=== PATIENT | female | born 2005 | race Caucasian/White ===

== ENCOUNTER 2023-09-29 11:35 | Emergency (ER) | payer OTHER ==
[2023-09-29] MEDS ORDERED: Iopamidol 300 61% 100 ML VIAL FS ONE (12:02)
[2023-09-29 12:13] LABS: Bilirubin Neg (Negative); Blood, Urine Negative (Negative); Clarity Clear (Clear); Glucose, Urine (Dipstick) Normal (Negative); Ketone, Urine 5 mg/dL (Negative); Leukocyte Negative (Negative); Nitrite Negative (Negative); Protein, Urine (Dipstick) 15 mg/dl (Neg-Trace)
[2023-09-29 12:16] LABS: Pregnancy Test - Urine (BHCG) Negative (Negative); Pregu Control Background? CLEAR/WHITE (CLR/WHITE); Pregu Control Bar Appear? YES (CONTROL BAR)
[2023-09-29 12:17] LABS: Bacteria/HPF None Seen HPF (None Seen); CAUTI Indications for Culture Pelvic or flank pain; RBC/HPF None Seen HPF (0-3); Squamous Epithelial 0-3 HPF (0-3); WBC/HPF None Seen HPF (0-3)
[2023-09-29 12:18] LABS: Urine Culture Reflex No No
[2023-09-29 12:18] LABS: #Eosinphils 0.1 10x3/uL (0.0-0.5); #Monocytes 0.3 10x3/uL (0.0-1.1); #Neutrophils 2.8 10x3/uL (1.5-8.4); %Basophils 0.6 % (0.0-2.0); %Eosinophils 1.1 % (0.0-6.0); %Lymphocytes 33.5 % (18.0-47.0); %Monocytes 5.6 % (0.0-10.0); Hematocrit 41.7 % (34.9-44.5); Hemoglobin 14.8 g/dL (12.0-15.5); Mean Corpuscular HGB CONC 35.5 g/dL (32.0-36.0); Mean Corpuscular Volume 87.4 fl (81.6-98.3); Mean Platelet Volume 9.5 fl (7.4-10.4); Platelet Count 379 10x3/uL (150-450); RBC Distribution Width 11.7 % (11.5-14.5); Red Blood Cell (RBC) Count 4.77 10x6/uL (3.90-5.03); White Blood Cell (WBC) Count 4.7 10x3/uL (3.5-10.5)
[2023-09-29 12:41] LABS: ALT (SGPT) 16 U/L (8-55); AST (SGOT) 19 U/L (5-30); Albumin 4.6 g/dL (3.5-5.0); Alkaline Phosphatase 70 U/L (40-100); Anion Gap 16 mmol/L (10-20); BUN (Urea Nitrogen) 6 mg/dL (8.4-21.0); Bilirubin, Total 0.4 mg/dL (0.2-1.2); Calc. Creatinine Clearance 0 mL/min (70-130); Calcium 9.7 mg/dL (7.8-10.44); Carbon Dioxide 22 mmol/L (22-29); Chloride 104 mmol/L (98-107); Estimated GFR 104; Globulin 3.5 g/dL (2.4-3.5); Glucose 102 mg/dL (70-105); Potassium 3.8 mmol/L (3.5-5.1); Protein, Total 8.1 g/dL (6.0-8.3); Sodium 138 mmol/L (136-145)
[2023-09-29] MEDS ORDERED: Ondansetron PF 4 MG/2 ML Vial ONE (12:48)
[2023-09-29] MEDS ORDERED: Morphine 4 MG/ML VIAL ONE (12:48)
[2023-09-29 13:08] LABS: Lipase 14 U/L (8-78)
== END 2023-09-29 14:45 | disposition home or self-care (01) ==
LOC: CSHERS 11:35
DX: K59.00 Constipation, unspecified (principal)
CPT/HCPCS: 74177; 80053; 81001; 81025; 83690; 85025; 96361; 96374; 96375; J2270; J2405; Q9967

== ENCOUNTER 2025-05-07 09:06 | Outpatient (CLI) | payer OTHER | END 2025-05-07 09:07 | disposition home or self-care (01) | LOC: CSHULT 09:06 | PROVIDERS: ATTEND Internal Medicine | DX: R10.13 Epigastric pain (principal); R11.2 Nausea with vomiting, unspecified; K59.09 Other constipation | CPT/HCPCS: 76700 ==

== ENCOUNTER 2025-06-01 17:49 | Emergency (ER) | payer OTHER ==
[2025-06-01 18:30] LABS: BHCG - Serum Negative (NEGATIVE); Pregs Control Background? CLEAR/WHITE (CLR/WHITE); Pregs Control Bar Appear? YES (CONTROL BAR)
[2025-06-01 18:31] LABS: #Basophils Less than 0.03 10x3/uL (0.0-0.2); #Eosinophils 0.04 10x3/uL (0.0-0.5); #Monocytes 0.25 10x3/uL (0.0-1.1); #Neutrophils 4.52 10x3/uL (1.5-8.4); %Basophils 0.4 % (0.0-2.0); %Eosinophils 0.8 % (0.0-6.0); %Lymphocytes 9.2 % (18.0-47.0); %Monocytes 4.7 % (0.0-10.0); %Neutrophils 84.7 % (40.0-75.0); Hematocrit 38.7 % (34.9-44.5); Hemoglobin 13.6 g/dL (12.0-15.5); Mean Corpuscular Hemoglobin 31.4 pg (27.0-33.0); Mean Corpuscular Volume 89.4 fL (81.6-98.3); Platelet Count 325 10x3/uL (150-450); Red Blood Cell (RBC) Count 4.33 10x6/uL (3.90-5.03); White Blood Cell (WBC) Count 5.33 10x3/uL (3.5-10.5)
[2025-06-01 18:36] LABS: ALT (SGPT) 17 U/L (Less than 34); AST (SGOT) 27 U/L (11-34); Albumin 4.1 g/dL (3.1-4.5); Alkaline Phosphatase 52 U/L (40-110); Anion Gap 12 mmol/L (10-20); BUN (Urea Nitrogen) 10 mg/dL (7.0-18.7); Bilirubin, Total 0.3 mg/dL (0.3-1.2); Calc. Creatinine Clearance 0 mL/min (70-130); Calcium 9.0 mg/dL (7.8-10.44); Carbon Dioxide 25 mmol/L (22-29); Chloride 105 mmol/L (98-107); Globulin 3.0 g/dL (2.4-3.5); Glucose 95 mg/dL (70-105); Lipase 17 U/L (8-78); Potassium 3.9 mmol/L (3.5-5.1); Sodium 138 mmol/L (136-145)
[2025-06-01 19:07] LABS: Glucose, Urine (Dipstick) Normal (Negative); Leukocyte 25 (Negative); Protein, Urine (Dipstick) 30 mg/dl (Neg-Trace); Specific Gravity, Urine 1.020 (1.005-1.030)
[2025-06-01 19:19] LABS: Bacteria/HPF 1+ HPF (None Seen); CAUTI Indications for Culture Pelvic or flank pain; RBC/HPF None Seen HPF (0-3); WBC/HPF 0-3 HPF (0-3)
[2025-06-01] MEDS ORDERED: Droperidol 5 MG/2 ML VIAL ONE (19:19)
[2025-06-01 19:20] LABS: Urine Culture Reflex No No
== END 2025-06-01 20:23 | disposition home or self-care (01) ==
LOC: CSHERS 17:49
DX: R10.13 Epigastric pain (principal); R10.30 Lower abdominal pain, unspecified; R10.10 Upper abdominal pain, unspecified; R11.2 Nausea with vomiting, unspecified; R82.71 Bacteriuria
CPT/HCPCS: 36415; 74176; 80053; 81001; 83690; 84703; 85025; 93005; 96372; J1790